=== PATIENT | female | born 1945 | race Caucasian/White ===

== ENCOUNTER → 2016-10-13 | Outpatient (CLI) | payer MEDICARE ==
--- NOTE | 2016-10-13 08:42 | MR ---
EXAMINATION TYPE: MR brain wo/w con DATE OF EXAM: 10/13/2016 8:36 AM COMPARISON: NONE HISTORY: Brain tumor, headache CONTRAST: Patient received 10 mL intravenous MultiHance gadolinium contrast. Multiplanar and multispin-echo imaging of the brain was performed . Pre and post contrast enhanced i mages are obtained. The ventricles, basal cisterns and sulci overlying the cerebral convexities are mildly enlarged. There is evidence of mild to moderate periventricular white matter ischemic change. Underlying demyel inating process not excluded. Remote deep white matter insults are also noted. No acute edema is seen on diffusion weighted imaging. There is no evidence for midline shift or mass effect. Acute intracranial hemorrhage or extra-axial collection is not evident. No enhancing lesions are seen. The paranasal sinuses and mastoid air cells are well-aerated. IMPRESSION: Age-related atrophic and chronic small vessel ischemic change. No acute intracranial process at this time. No enhancing lesions are seen.
== END | disposition home or self-care (01) ==
LOC: RADMRIMAIN 06:01
PROVIDERS: ATTEND Psychiatry & Neurology Neurology
DX: C71.9 Malignant neoplasm of brain, unspecified (principal); G31.1 Senile degeneration of brain, not elsewhere classified; I67.82 Cerebral ischemia
CPT/HCPCS: 70553; A9577

== ENCOUNTER → 2017-04-04 | Outpatient (CLI) | payer MEDICARE ==
--- NOTE | 2017-04-04 15:41 | US ---
EXAMINATION TYPE: US extremity nonvasc mass RT DATE OF EXAM: 04/04/2017 COMPARISON: NONE CLINICAL HISTORY: R22.9 Soft tissue swelling. There is minimal heterogeneity of the subcutaneous tissues relating to mild subcutaneous swelling. patient has swelling anterior right lower leg, patient states it has gone down considerably. Scanned anterior right lower leg, no definite abnormality noted. IMPRESSION: Minimal subcutaneous edema with no focal sonographic abnormality.
== END | disposition home or self-care (01) ==
LOC: RADUSWWP 14:59
PROVIDERS: ATTEND Internal Medicine
DX: R60.0 Localized edema (principal)

== ENCOUNTER → 2018-03-22 | Outpatient (CLI) | payer MEDICARE ==
--- NOTE | 2018-03-25 09:03 | CT ---
EXAMINATION TYPE: CT abdomen pelvis w con DATE OF EXAM: 03/22/2018 COMPARISON: None HISTORY: Right inguinal mass and pain. CT DLP: 386.2 mGycm CONTRAST: CT scan of the abdomen and pelvis is performed with Oral Contrast and with IV Contrast, patient injec lauren with 100ml mL of Isovue M300. FINDINGS: LUNG BASES-: No visible nodule. No infiltrate. Linear basilar parenchymal scarring. LIVER/GB: No calcified gallstones. No space occupying hepatic lesion. Biliary tree is of normal ca liber. PANCREAS: No inflammation. No distinct mass. SPLEEN: No splenic enlargement. No lesion seen. ADRENALS: No nodule. No thickening. KIDNEYS/BLADDER: No hydronephrosis. No nephrolithiasis. No distinct renal mass. Urinary bladder g rossly unremarkable. BOWEL: Normal appendix. Normal bowel caliber. No inflammation. Sigmoid diverticulosis without diver ticulitis. GENITAL ORGANS: No gross abnormality. LYMPH NODES: No greater than 1cm abdominal or pelvic lymph nodes are appreciated. AORTA: No significant abnormality. OSSEOUS STRUCTURES: No significant abnormality is seen. OTHER: Right-sided Spigelian hernia containing fat and measuring approximately 4.3 x 2.6 cm. IMPRESSION: 1. Right-sided Spigelian hernia containing fat . 2. Sigmoid diverticulosis without diverticulitis. 3. Basilar parenchymal scarring. 4. Small sliding-type hiatal hernia.
== END | disposition home or self-care (01) ==
LOC: RADCTMAIN 15:12
PROVIDERS: ATTEND Internal Medicine
DX: K43.9 Ventral hernia without obstruction or gangrene (principal); K44.9 Diaphragmatic hernia without obstruction or gangrene; K57.30 Diverticulosis of large intestine without perforation or abscess without bleeding
CPT/HCPCS: 74177; Q9967

== ENCOUNTER → 2018-03-23 | Outpatient (CLI) | payer MEDICARE ==
--- NOTE | 2018-03-25 02:42 | MR ---
EXAMINATION TYPE: MR lumbar spine wo/w con DATE OF EXAM: 03/23/2018 COMPARISON: None HISTORY: Lumbar radiculopathy TECHNIQUE: Multiplanar, multisequence images of the lumbar spine were acquired utilizing 5.5 mL intravenous Gada vist gadolinium contrast. There is a few millimeter anterior subluxation of L5 in relation to S1. There is similar change at L4 -5. There is a low signal rounded 8 mm mass in this bile canal on the left side at L5-S1. This could be a calcified synovial cyst arising from the facet joint. There is no compression fracture. There is no lumbar paraspinal mass. Sacroiliac joints are intact. There is some mild lateral recess stenosis due to facet arthropathy at L4-5. I see no pathologic enhancement. IMPRESSION: There is degenerative first-degree L4-5 and L5-S1 spondylolisthesis. There is mild multilevel spondyl otic change. No fracture. Small posterior disc bulging at L4-5 with facet arthropathy and mild latera l recess stenosis. There is no significant spinal stenosis. There is left side low signal lesion at L5-S1 lateral recess on the left side that could be a calcifi ed synovial cyst. Calcified sequestered disc herniation is possible.
== END | disposition home or self-care (01) ==
LOC: RADMRIMAIN 11:39
PROVIDERS: ATTEND Psychiatry & Neurology Neurology
DX: M43.16 Spondylolisthesis, lumbar region (principal); M43.17 Spondylolisthesis, lumbosacral region; M48.061 Spinal stenosis, lumbar region without neurogenic claudication; M47.816 Spondylosis without myelopathy or radiculopathy, lumbar region; M51.26 Other intervertebral disc displacement, lumbar region; M48.8X6 Other specified spondylopathies, lumbar region; M48.8X7 Other specified spondylopathies, lumbosacral region
CPT/HCPCS: 72158; A9581

== ENCOUNTER → 2018-04-16 | Outpatient (CLI) | payer MEDICARE ==
--- NOTE | 2018-04-22 13:25 | MM ---
Reason for exam: screening (asymptomatic). History: Patient is postmenopausal. Took hormonal contraceptives for 10 years. Physical Findings: A clinical breast exam by your physician is recommended on an annual basis and results should be correlated with mammographic findings. MG 3D Screening Mammo W/Cad Bilateral CC and MLO view(s) were taken. There are scattered fibroglandular densities. There is no discrete abnormality. ASSESSMENT: Benign, BI-RAD 2 RECOMMENDATION: Routine screening mammogram of both breasts in 1 year.
== END | disposition home or self-care (01) ==
LOC: RADMAMWWP 13:27
PROVIDERS: ATTEND Internal Medicine
DX: Z12.31 Encounter for screening mammogram for malignant neoplasm of breast (principal)
CPT/HCPCS: 77063; 77067

== ENCOUNTER → 2018-07-17 | Outpatient (CLI) | payer MEDICARE ==
[2018-07-17 14:12] LABS: Partial Thromboplastin Time 23.6 sec (22.0-30.0); Prothrombin Time 10.2 sec (9.0-12.0)
== END ==
LOC: LABPAT 12:52
PROVIDERS: ATTEND Anesthesiology
DX: Z01.818 Encounter for other preprocedural examination (principal); Z01.812 Encounter for preprocedural laboratory examination; Z51.81 Encounter for therapeutic drug level monitoring; Z79.01 Long term (current) use of anticoagulants
CPT/HCPCS: 36415; 85610; 85730; 93005

== ENCOUNTER 2018-07-18 09:55 | Day surgery (SDC) | payer MEDICARE ==
[2018-07-10 14:33] VITALS: BMI 24.6
[~2018-07-18 09:55] MED LIST: DEXAMETHASONE SOD PHOSPHATE 10 MG/ML 1 ML VIAL IV ONE; HEPARIN SODIUM,PORCINE 5,000 UNIT/ML 1 ML VIAL SQ ONE; LACTATED RINGERS 1,000 ML IV SCH; LIDOCAINE 1% 20 ML VIAL (10MG/ML) FOR IV START INTRADERMA PRN; MIDAZOLAM 2 MG/2 ML VIAL IV PRN; ONDANSETRON 4 MG/2 ML VIAL IVP ONE; ceFAZolin IN SWFI 2 GM/20 ML SYRINGE IVP ONE
[2018-07-18] MEDS: fentaNYL (PF) 50 MCG/ML 2 ML AMP IV PRN ×5 (11:53→15:34)
--- NOTE | 2018-07-18 13:10 | P.ONQ ---
Anesthesiology Proc Note - PNB - Peripheral Nerve Block Performed Bilateral Rectus Abdominis Single Time Out Performed: Yes Procedure Start Time: 11:48 Indication: Acute Post-Operative Pain, Analgesia Specifically requested for management of pain by DrNai: Margaret Flores Sedation Type: Sedate with meaningful contact maintained Preparation: Sterile Prep Position: Supine Catheter: None Needle Types: Other (see comment) (pajunk) Needle Size: 50mm (2") Needle Gauge: 21 Technique: Ultrasound Injectate: Other (see comment) (0.5% lidocaine + 0.25 % ropivicaine 25 cc each side) Adjunct: Epinephrine (see comment for dilution ratio) (1:200,000) Blood Aspirated: No Pain Paresthesia on Injection Noted: No Resistance on Injection: Normal Events: Uneventful and Well Tolerated
[2018-07-18] MEDS ORDERED: fentaNYL (PF) 50 MCG/ML 2 ML AMP ONE (13:20)
[2018-07-18] MEDS ORDERED: ROCURONIUM BROMIDE 10 MG/ML 10 ML VIAL IV ONE (13:20)
[2018-07-18] MEDS ORDERED: ACETAMINOPHEN IV (For NPO) 1,000 MG/100 ML VIAL ONE (13:20)
[2018-07-18] MEDS ORDERED: BUPIVACAIN-EPI 0.25%-1:200,000 30 ML VIAL SQ ONE ×2 (13:20)
[2018-07-18] MEDS ORDERED: ROPIVACAINE 5 MG/ML 30 ML VIAL ONE (13:20)
[2018-07-18] MEDS ORDERED: LIDOCAINE 1% INJ 10MG/ML (20 ML MDV) ONE (13:20)
[2018-07-18] MEDS ORDERED: SUCCINYLCHOLINE CHLORIDE 100 MG/5 ML SYR IV ONE (13:20)
[2018-07-18] MEDS ORDERED: PROPOFOL 10 MG/ML 20 ML VIAL IV ONE (13:20)
[2018-07-18] MEDS ORDERED: HYDROmorphone (PF) 1 MG/ML ONE (13:20)
[2018-07-18] MEDS ORDERED: NEOSTIGMINE 1 MG/ML 10 ML VIAL ONE (13:20)
[2018-07-18] MEDS ORDERED: GLYCOPYRROLATE 0.2 MG/ML 2 ML VIAL ONE (13:20)
[2018-07-18] MEDS ORDERED: MIDAZOLAM 2 MG/2 ML VIAL ONE (13:20)
[2018-07-18] MEDS ORDERED: LACTATED RINGERS 1,000 ML IV ONE (14:03)
[2018-07-18 14:32] VITALS: RESP 16; TEMP 97.4
--- NOTE | 2018-07-18 14:32 | P.OP ---
Date of Procedure: 07/18/18 Preoperative Diagnosis: Spigelian hernia Postoperative Diagnosis: Spigelian hernia Procedure(s) Performed: Laparoscopic ventral hernia repair with mesh Implants: Mesh Anesthesia: LUCIA Surgeon: Margaret Flores Pathology: none sent Condition: stable Disposition: same day Indications for Procedure: 73-year-old female with pain in her right side of the abdomen. On workup, the patient was found to have a spigelian hernia at this site. The patient presents today for elective repair of the hernia. Operative Findings: Spigelian hernia incarcerated with omentum Description of Procedure: The patient was brought into the operating suite and placed in supine position on the operating table. Sedation was provided by anesthesia and the patient underwent endotracheal intubation. The patient was then prepped and draped in regular sterile fashion. A left upper quadrant incision was made and the abdomen was entered under direct visualization using a 5 mm Visiport. Pneumoperitoneum was then achieved. It was then clear that the hernia was located in the right lower quadrant and appeared to be aSpigelian hernia. There was incarcerated omentum. 2 additional 5 mm ports were placed in the abdomen and the omentum was freed using LigaSure device. Once completely freed , a Lior Bhatti device was used to close the hernia defect with 0 Vicryl suture. At this point one of the 5 mm port sites was exchanged for a 10 mm port site and a six-inch Bard Ventralight Mesh with echo positioning system was placed into the abdomen. The catheter was then grasped by a Lior-Cj device and elevated towards the abdominal wall. The inflation device was then used in the balloon was inflated and the mesh was noted to sit against the abdominal wall appropriately. A tacking device was used to secure the mesh to the abdominal wall. The balloon was then removed. The 10 mm trocar site was closed with a [id number] 0 Vicryl suture. Pneumoperitoneum was then released. All ports removed from the abdomen. All skin incision sites were closed with 4-0 Vicryl subcuticular suture. The patient was awakened in the operating suite and taken to postanesthesia care unit in stable condition.
[2018-07-18] MEDS ORDERED: HYDROcodone/APAP 5-325MG 1 EACH TAB PO ONE (16:34)
[2018-07-18 16:38] VITALS: BP 130/78; PULSE 95
== END 2018-07-18 17:58 | disposition home or self-care (01) ==
LOC: OR 09:55
PROVIDERS: ATTEND Surgery
DX: K43.6 Other and unspecified ventral hernia with obstruction, without gangrene (principal); K21.9 Gastro-esophageal reflux disease without esophagitis; D47.3 Essential (hemorrhagic) thrombocythemia; C94.6 Myelodysplastic disease, not elsewhere classified; E88.01 Alpha-1-antitrypsin deficiency; J43.9 Emphysema, unspecified; M19.90 Unspecified osteoarthritis, unspecified site; K22.70 Barrett's esophagus without dysplasia; Z80.6 Family history of leukemia; Z80.51 Family history of malignant neoplasm of kidney; Z86.73 Personal history of transient ischemic attack (TIA), and cerebral infarction without residual deficits; Z87.891 Personal history of nicotine dependence; Z79.82 Long term (current) use of aspirin; Z79.51 Long term (current) use of inhaled steroids; Z79.899 Other long term (current) drug therapy; Z91.040 Latex allergy status; Z91.018 Allergy to other foods; Z91.048 Other nonmedicinal substance allergy status; Z91.09 Other allergy status, other than to drugs and biological substances; Z91.041 Radiographic dye allergy status
CPT/HCPCS: 49653; 64488; C1781; J2250; J1644; J1100; J2710; J2405; J2001; J3010; J1170; J2795; J0131; J0330; J2704; J0690

== ENCOUNTER → 2018-11-16 | Outpatient (CLI) | payer MEDICARE ==
[2018-11-16 12:00] LABS: Blood Urea Nitrogen 13 mg/dL (7-17)
--- NOTE | 2018-11-16 15:45 | MR ---
EXAMINATION TYPE: MR lumbar spine wo/w con DATE OF EXAM: 11/16/2018 COMPARISON: 03/23/2018 HISTORY: Prior on synapse, weakness in legs, pain to back and hips TECHNIQUE: Multiplanar, multisequence images of the lumbar spine were acquired utilizing 5ml mL intravenous Gada vist gadolinium contrast. There is 5 mm anterior subluxation of L4 in relation L5. Disc spaces are slightly narrowed. There is no compression fracture. There is mild thoracolumbar levoscoliosis. There is no lumbar paraspinal mas s. Posterior elements appear intact. There is no spinal stenosis. There is developmentally adequate s sanna canal. There is hypertrophic facet arthropathy in the lower lumbar spine. There is no pathologic enhancement. Lumbar nerve roots appear normal. IMPRESSION: Multilevel spondylotic changes. Degenerative first-degree L4-5 spondylolisthesis. No significant dodge ge compared to old exam. No spinal stenosis.
== END ==
LOC: RADMRIMAIN 11:19
PROVIDERS: ATTEND Psychiatry & Neurology Neurology
DX: M43.16 Spondylolisthesis, lumbar region (principal); M47.26 Other spondylosis with radiculopathy, lumbar region; M54.5 Low back pain
CPT/HCPCS: 82565; 84520; 72158; 36415; A9585

== ENCOUNTER → 2021-08-01 | Outpatient (CLI) | payer MEDICARE ==
[2021-08-01 16:07] LABS: African American GFR (CKD) >90 (>60 ml/min/1.73 sqM); Blood Urea Nitrogen 15 mg/dL (7-17); Non-African American GFR(CKD) 85 (>60 ml/min/1.73 sqM)
--- NOTE | 2021-08-01 21:25 | CT ---
EXAMINATION TYPE: CT abdomen pelvis w con DATE OF EXAM: 08/01/2021 HISTORY: Abdominal mass left upper quadrant. History of essential thrombocythemia and alpha-[address] DLP: 371.2mGycm Automated Exposure Control for Dose Reduction was Utilized. CONTRAST: CT scan of the abdomen and pelvis is performed with IV Contrast, patient injected with 100 mL of Isov ue M300. COMPARISON: CT abdomen and pelvis March 22, 2018 FINDINGS: LUNG BASES: Persistent mild to moderate bibasilar linear scarring and/or atelectasis. LIVER/GB: Stable normal-sized liver. No new biliary dilatation. PANCREAS: No significant abnormality is seen. SPLEEN: No significant abnormality is seen. ADRENALS: No significant abnormality is seen. KIDNEYS: No significant abnormality is seen. BOWEL: The oral contrast has not reached the level of the terminal ileum. No suspicious small or larg e bowel dilatation. Diverticula in the left hand sigmoid colon are present. No CT evidence for acute diverticulitis. A few bowel loops left upper quadrant slightly more prominent. No abnormal small or l arge bowel dilatation. UTERUS/ADNEXA: Uterus surgically absent or atrophic. Prominent left ovary axial image 55 is stable LYMPH NODES: No greater than 1cm abdominal or pelvic lymph nodes are appreciated. OSSEOUS STRUCTURES: Osseous structures are demineralized. Few small scattered hemangiomas in the lumb ar spine. Facet arthropathy lower lumbar levels. OTHER: Mild calcified plaque abdominal aorta extends into branch vessels. Interval right spigelian he rnia repair. No new ventral wall hernia identified. IMPRESSION: No suspicious new mass or adenopathy. Stable normal-sized spleen.
== END | disposition home or self-care (01) ==
LOC: RADCTMAIN 13:35
PROVIDERS: ATTEND Internal Medicine Hematology & Oncology
DX: R19.02 Left upper quadrant abdominal swelling, mass and lump (principal); Z86.2 Personal history of diseases of the blood and blood-forming organs and certain disorders involving the immune mechanism
CPT/HCPCS: 82565; 84520; 74177; 36415; Q9967

== ENCOUNTER → 2023-11-14 | Outpatient (CLI) | payer MEDICARE ==
--- NOTE | 2023-11-16 07:36 | XR ---
EXAMINATION TYPE: XR lumbosacral spine min 4V DATE OF EXAM: 11/14/2023 Comparison: 12/19/2017 Clinical History: 78-year-old female [id number] LBP Findings: Accentuated lower lumbar lordosis. 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 There is a degenerative grade 1 anterolisthesis at L4-L5 which appears increas ed from 2018. Degenerative grade 1 retrolisthesis at and L1-L2, L2-L3, and L3-L4. Additional trace gr aleshia 1 anterolisthesis L4-L5. Vertebral body heights are preserved. There is mild to moderate degenera tive disc disease throughout the visualized lumbar spine. Levoconvex curvature has increased. Impression: 1. Severe hypertrophic facet arthropathy especially in the lower lumbar spine with Baastrup's disease and accentuated lower lumbar lordosis. 2. Grade 1 anterolisthesis at L5-S1 appears increased from 2018. There is also redemonstrated trace g rade 1 spondylolisthesis L1 through L5 levels. Levoconvex curvature of the lumbar spine has increased . 3. Mild to moderate multilevel degenerative disc disease. 4. No vertebral compression collapse.
== END | disposition home or self-care (01) ==
LOC: RADXRYALE 16:42
PROVIDERS: ATTEND Internal Medicine
DX: M51.36 Other intervertebral disc degeneration, lumbar region (principal); M48.26 Kissing spine, lumbar region; M43.17 Spondylolisthesis, lumbosacral region; M47.816 Spondylosis without myelopathy or radiculopathy, lumbar region
CPT/HCPCS: 72110

== ENCOUNTER → 2024-07-07 | Outpatient (CLI) | payer MEDICARE ==
--- NOTE | 2024-07-07 16:36 | XR ---
Right ankle HISTORY: Pain following fall. COMPARISON: None TECHNIQUE: 3 views of the right ankle were obtained. FINDINGS: The osseous structures are mildly osteopenic. The ankle mortise is intact. No fracture or dislocation . There is moderate to marked soft tissue swelling. IMPRESSION: Moderate to marked soft tissue swelling but no acute fracture or dislocation. [facility], , 07/07/2024 4:34 PM
--- NOTE | 2024-07-07 16:38 | XR ---
Right foot HISTORY: Pain following fall. COMPARISON: None. TECHNIQUE: 3 views of the right foot were obtained. FINDINGS: There is mild osteopenia. There is no acute fracture or dislocation. There is joint space narrowing and subchondral sclerosis involving the navicular/second metatarsal ar ticulations consistent with moderate to marked osteoarthritis. There is mild osteoarthritis of the fi rst MTP joint.. IMPRESSION: 1. No acute trauma. 2. Osteoarthritic changes in the midfoot and first MTP joint as described above. [facility], , 07/07/2024 4:36 PM
== END | disposition home or self-care (01) ==
LOC: RADXRYALE 16:14
PROVIDERS: ATTEND Internal Medicine
DX: M19.071 Primary osteoarthritis, right ankle and foot (principal)